=== PATIENT | male | born 1950 | race Hispanic/Latino ===

== ENCOUNTER 2017-02-09 10:46 | Emergency (ER) | payer MEDICARE, MEDICAID, OTHER ==
[~2017-02-09] VITALS: Ht 167.6 cm; Wt 75.9 kg
[~2017-02-09 10:46] MED LIST: CIPR-231 PO; ERGO500050 PO; PHN100C PO; TAMS0.4C98 PO
[2017-02-09 10:55] VITALS: BP 128/88; PULSE 82; RESP 15; O2SAT 96
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
--- NOTE | 2017-02-09 13:32 | DRSVH ---
PROCEDURE: X-RAY LEFT RIBS INCLUDEING PA CHEST, MINUMUM THREE VIEWS ([id number]) INDICATIONS: rib pain TECHNIQUE: 2 views of the left ribs were acquired, along with a single view chest. COMPARISON: None. FINDINGS: Surgical changes and devices: None. Bones and chest wall: No fractures or dislocations. No suspicious bony lesions. Overlying soft tis sues appear unremarkable. Lungs and pleura: No pleural effusions or pneumothorax. Lungs appear clear. Mediastinum: Mediastinal contours appear normal. Heart size is normal. IMPRESSION: No trauma found. Dictated by: Emmanuel Stringer M.D. on 02/09/2017 at 13:30 Approved by: Emmanuel Stringer M.D. on 02/09/2017 at 13:31
--- NOTE | 2017-02-09 13:34 | DRSVH ---
PROCEDURE: X-RAY LEFT HUMERUS, MINIMUM TWO VIEWS ([id number]) INDICATIONS: LEFT ARM PAIN TECHNIQUE: 2 views of the humerus were acquired. COMPARISON: None. FINDINGS: Bones: No fractures or dislocations. No suspicious bony lesions. Soft tissues: No suspicious soft tissue calcifications IMPRESSION: <<No trauma fell, low arthritis at the shoulder and elbow, no bone lesion identified. Dictated by: Emmanuel Stringer M.D. on 02/09/2017 at 13:31 Approved by: Emmanuel Stringer M.D. on 02/09/2017 at 13:32
[2017-02-09 14:37] VITALS: BP 119/88; PULSE 67; RESP 18; O2SAT 98
== END 2017-02-09 14:51 | disposition home or self-care (01) ==
LOC: SED 11:00
DX: S20.212A Contusion of left front wall of thorax, initial encounter (principal); S40.022A Contusion of left upper arm, initial encounter; Y04.0XXA Assault by unarmed brawl or fight, initial encounter; Y93.89 Activity, other specified; Y92.89 Other specified places as the place of occurrence of the external cause; Y99.8 Other external cause status
CPT/HCPCS: 71101; 73060; 99284; J1885

== ENCOUNTER 2017-02-22 17:18 | Emergency (ER) | payer MEDICARE, MEDICAID, OTHER ==
[~2017-02-22] VITALS: Ht 167.6 cm; Wt 75.9 kg
[2017-02-22 17:27] VITALS: BP 123/75; PULSE 82; RESP 15; O2SAT 93
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
--- NOTE | 2017-02-22 19:24 | DRSVH ---
PROCEDURE: X-RAY LEFT HUMERUS, MINIMUM TWO VIEWS ([id number]) INDICATIONS: left shoulder pain TECHNIQUE: 2 views of the humerus were acquired. COMPARISON: None. FINDINGS: Bones: No acute fracture or dislocation. Moderate degenerative changes are present at the acromioclav icular joint. Mild degenerative changes present at the glenohumeral joint. Soft tissues: No suspicious soft tissue calcifications. IMPRESSION: Mild to moderate degenerative change. No acute fracture or dislocation. If further charac terization is warranted, MRI of the shoulder may be helpful to evaluate the rotator cuff. Dictated by: Jayla Zavala M.D. on 02/22/2017 at 19:21 Approved by: Jayla Zavala M.D. on 02/22/2017 at 19:22
[2017-02-22] MEDS ORDERED: HYDR-4003 PO (19:30)
--- NOTE | 2017-02-22 19:56 | DRSVH ---
PROCEDURE: X-RAY LEFT SHOULDER, MINIMUM TWO VIEWS ([id number]) INDICATIONS: left shoulder pain TECHNIQUE: 3 views of the shoulder were acquired. COMPARISON: [facility], CR, SHOULDER MIN 2VW (LT), 06/30/2013, 16:41. [facility], CR, XR CHEST 1VW (PORTABLE), 02/06/2016, 14:48. FINDINGS: Bones: Moderate degenerative change is present at the acromioclavicular joint. Mild degenerative snowden ges present at the glenohumeral joint. These findings are slightly increased in extent when compared with the study dated 06/30/13. No acute fracture or dislocation. Soft tissues: No suspicious soft tissue calcifications. IMPRESSION: Degenerative change. If further characterization is warranted, MRI of the shoulder is rec ommended to evaluate the rotator cuff. Dictated by: Jayla Zavala M.D. on 02/22/2017 at 19:53 Approved by: Jayla Zavala M.D. on 02/22/2017 at 19:54
[2017-02-22 20:34] VITALS: BP 119/81; PULSE 64; RESP 16; O2SAT 95
== END 2017-02-22 20:35 | disposition home or self-care (01) ==
LOC: SED 17:18
DX: S46.002A Unspecified injury of muscle(s) and tendon(s) of the rotator cuff of left shoulder, initial encounter (principal); Y04.8XXA Assault by other bodily force, initial encounter; Y92.9 Unspecified place or not applicable; Y93.89 Activity, other specified; Y99.8 Other external cause status; G40.909 Epilepsy, unspecified, not intractable, without status epilepticus
CPT/HCPCS: 73030; 73060; 96372; 99284; J1885

== ENCOUNTER → 2017-03-19 | Day surgery (SDC) | payer MEDICARE, MEDICAID ==
[~2017-03-19] VITALS: Ht 167.6 cm; Wt 77.0 kg
[~2017-03-19] MED LIST changes: +HYDR-4003 PO; +LEVE250T4 PO; +Sodium Chloride LOK Flush 10 mL Syringe IV PRN; +fentaNYL-PF 50 mCg/mL 2 mL Inj IVPUSH PRN
[2017-03-19 14:12] VITALS: BP 105/72; PULSE 75; RESP 16; O2SAT 93
[2017-03-19] MEDS: 0.9% Sodium Chloride 1,000 ML IV SCH ×2 (14:15→14:45)
[2017-03-19 14:58] VITALS: BP 109/72; PULSE 76; RESP 16; O2SAT 93
[2017-03-19 15:09] VITALS: BP 100/77; PULSE 73; RESP 16; O2SAT 92
--- NOTE | 2017-03-19 15:17 | ENDO ---
[address] [address] ENDOSCOPY PROCEDURE PATIENT: SHANNON NORMAN : 1950 MR#: [id number] ADMIT: 03/19/2017 JOB ID: [id number] DATE: 03/19/2017 PROCEDURE: Colonoscopy. INDICATION: Patient with a history of colon polyps. The patient's ASA classification is 2. Mallampati score is 2. MEDICATIONS: 1. Versed 2 mg. 2. Fentanyl 75 mcg. INSTRUMENT USED: PCF H 180 AL. PREPARATION QUALITY: Was fair. PROCEDURE DETAILS: After informed consent was obtained, the patient was brought into the GI suite, where he was placed on oxygen via nasal cannula and monitored with continuous pulse oximeter, telemetry and blood pressure monitoring. A time-out was performed. Then, he was placed in the left lateral decubitus position and medications were administered for sedation. Digital rectal examination was performed, which was unremarkable. The colonoscope was then inserted into the rectum and advanced under direct visualization to the cecum, which was identified by the presence of the ileocecal valve and appendiceal orifice. Once the cecum was reached, the colonoscope was withdrawn back into the rectum and the mucosa and lumen were examined. In the rectum, retroflexion was performed. Following retroflexion, remaining air in the rectum was suctioned, and procedure was completed. FINDINGS: 1. On retroflexed views in the rectum, there was a diminutive polyp that was removed with cold biopsy forceps. 2. Otherwise normal examination from rectum to cecum. IMPRESSION: Rectal polyp. RECOMMENDATIONS: Repeat colonoscopy pending polyp pathology results. COMPLICATIONS: None. ESTIMATED BLOOD LOSS: Less than 5 mL.
[2017-03-19 15:22] VITALS: BP 106/77; PULSE 71; RESP 16; O2SAT 94
--- NOTE | 2017-03-25 09:31 | PATH ---
SURGICAL PATHOLOGY Attending Physician:Sergey Ochoa CASE STATUS: Signed Out PATIENT NAME: SHANNON NORMAN PID: [id number] : 1950 DATE COLLECTED:03/19/2017 00:00 SPECIMEN: Rectum, Biopsy CLINICAL HISTORY: 1). RECTAL POLYP FINAL DIAGNOSIS: 1.RECTAL POLYP: HYPERPLASTIC POLYP. ICD10 K62.1 GROSS DESCRIPTION: Received in formalin, labeled with the patient' s name and "rectal polyp", is one fragment of montes, soft tissue measuring 0.2 x 0.2 x 0.1 cm. The fragment is totally submitted in one cassette. ([id number]) MICRO DESCRIPTION: See diagnosis. ICD-9 CODES: CPT CODES: 1: 91450 Electronically Signed Out Juju Chu MD [facility] [address], [place] [address] Technical component performed at [facility], [address] [place] [address] Ave[address], [place], [address]
== END | disposition home or self-care (01) ==
LOC: END 00:19
PROVIDERS: ATTEND Internal Medicine Gastroenterology
DX: Z12.11 Encounter for screening for malignant neoplasm of colon (principal); Z86.010 Personal history of colon polyps; K62.1 Rectal polyp; Z87.440 Personal history of urinary (tract) infections
CPT/HCPCS: 45380; G0500; J2250; J3010; J7030